=== PATIENT | female | born 1970 | race Caucasian/White ===

== ENCOUNTER 2017-09-07 11:58 | Emergency (ER) | payer OTHER ==
[2017-09-07 12:20] VITALS: BP 121/81
--- NOTE | 2017-09-07 12:22 | ED Physician Documentation ---
Chest Pain - HISTORIAN Historian: patient - HPI Chief Complaint: Chest Pain Additional Information: lt mid rib pain after flu bug w/ marked coughing-finishing tamiflu-had double sickening Onset: days ago (2-3) Timing: gradual onset, still present Duration: waxing, waning, other (worse w/movement deep breath or cough) Last known Well Date: 08/29/17 Last Known Well Time: 20:00 Last known Well Code/Unknown Code: Known Severity: moderate Quality: pressure, sharp, stabbing Chest Pain Radiation: no radiation Chest Pain Signs/Symptoms: denies: nausea, vomiting, diaphoresis Worsened By: deep breaths, movement Relieved By: rest Further Comments: no - ROS CONST: recent illness MS/LYMPH: none GI/: none EYES/ENT: none SKIN/ENDO: none NEURO/PSYCH: none (ibs--controlled even w/ prev flu-cough) - PAST HX [place] risk factors: no pertinent history, other (recent flu w/cough) GI disease: none Lung disease: other (getting over flu) Surgeries/Procedures: other (d and c) Allergies/Adverse Reactions: Allergies Allergy/AdvReac Type Severity Reaction Status Date / Time amoxicillin trihydrate Allergy Face Verified 09/07/17 12:20 [From Amoxil] Swelling - SOCIAL HX Smoking History: non-smoker Alcohol Use: none Drug Use: none - FAMILY HX Family HX: none - VITAL SIGNS Vital Signs: Vital Signs Temp Pulse Resp BP Pulse Ox 97.7 F 91 H 18 121/81 100 09/07/17 12:13 09/07/17 12:13 09/07/17 12:13 09/07/17 12:13 09/07/17 12:13 - REVIEWED ASSESSMENTS Nursing Assessment Reviewed: Yes Vitals Reviewed: Yes Chest Pain Physical Exam - EXAM General Appearance: mild distress EENT: eye inspection normal Neck: nml inspection, no carotid bruit. No: lymphadenopathy Respiratory: no resp. distress, nml breath sounds. No: chest non-tender, resp.distress, decreased air movement, wheezes, rales, rhonchi CVS: reg. rate & rhythm, no murmur, pulses equal Abdomen: soft, non-tender Skin: warm/dry, normal color. No: cyanosis, diaphoresis, jaundice Extremities: non-tender, normal range of motion, no evidence of injury Neuro: oriented X3, motor nml, sensation nml, mood/affect nml Discharge Clincal Impression: lt sub axillary costochondritis Referrals: Zeynep Rand MD [Primary Care Provider] - 2 Days Comments: ibu 600 tid Condition: Good Disposition: 01 HOME, SELF-CARE Decision to Admit: NO Decision Time: 12:27
== END 2017-09-07 12:22 | disposition home or self-care (01) ==
LOC: ED 11:58
DX: M94.0 Chondrocostal junction syndrome [Tietze] (principal)
CPT/HCPCS: 99282

== ENCOUNTER 2018-05-02 15:50 | Emergency (ER) | payer OTHER ==
[2018-05-02 16:10] VITALS: BP 101/64
--- NOTE | 2018-05-02 17:59 | ED Physician Documentation ---
Fall - HISTORIAN Historian: patient - HPI Stated Complaint: s/p fall, pain to wrists/Lt knee and hip Chief Complaint: Fall Additional Information: fell on floor at work Onset: just prior to arrival, today Where: home Context: slipped r: moderate Associated Symptoms:: no loss of consciousness Location of Pain/Injury: upper extremity (left wrist), lower extremity (left knee), hip (left) Injury to Right Extremity: none Injury to Left Extremity: wrist, hip, knee Further Comments: no - ROS CONST: no problems NEURO: denies: dizziness, anxiety, depression MS/SKIN/LYMPH: denies: weakness, numbness, neck pain, back pain, ankle swelling, leg swelling EYES/ENT: none CVS/RESP: none GI/: denies: problems urinating, nausea, vomiting - PAST HX Past History: none Immunizations: referred to PCP Allergies/Adverse Reactions: Allergies Allergy/AdvReac Type Severity Reaction Status Date / Time amoxicillin trihydrate Allergy Face Verified 05/02/18 16:10 [From Amoxil] Swelling Home Medications: Ambulatory Orders Medication Instructions Recorded Norgestimate-Ethinyl Estradiol 0.25 mg PO D 05/02/18 [Sprintec 28 Day Tablet] - SOCIAL HX Smoking History: non-smoker Alcohol Use: none Drug Use: none - FAMILY HX Family History: no significant history - VITAL SIGNS Vital Signs: Vital Signs Temp Pulse Resp BP Pulse Ox 99.4 F 81 16 101/64 98 05/02/18 15:50 05/02/18 15:50 05/02/18 15:50 05/02/18 15:50 05/02/18 15:50 - REVIEWED ASSESSMENTS Nursing Assessment Reviewed: Yes Vitals Reviewed: Yes Progress - Results/Orders Results/Orders: x-rays of left hip, wrist and knee ordered - Progress Progress: . stable entire time in er Critical Care Note - Critical Care Note Total Time (mins): 0 ED Results Lab/Radiology - Lab Results Lab Results: none ordered - Radiology Radiology Impressions: left wrist x-ray, left knee x-ray, left hip x-ray all neg - Orders Orders: ED Orders Category Date Time Status KNEE 3 VIEWS [RAD] Stat Exams 05/02/18 Taken LT HIP 2VIEW COMPLETE [RAD] Routine Exams 05/02/18 Taken WRIST 3 VIEWS OR MORE [RAD] Stat Exams 05/02/18 Taken Fall Physical Exam - Physical Exam General Appearance: alert, moderate distress Head: non-tender, no swelling, no obvious injury. No: raccoon eyes, Swanson's sign, trauma Neck: non-tender, painless ROM, trachea midline Eye: ELVER, lids & conjunct. nml ENT: nml external inspection, no dental injury, no oral injury, airway nml Resp/CVS: chest non-tender, no ecchymosis, breath sounds nml, no resp. distress, heart sounds nml. No: rib tenderness Abdomen: soft, no organomegaly, normal bowel sounds, no abdominal bruit, no distension, non-tender Neuro: oriented x3, CN's nml as tested, sensation nml, motor nml, mood/affect nml, golf club manager nml, reflexes nml, golf club manager symmetrical Skin: color nml, no rash Back: normal inspection, no CVA tenderness, no vertebral tenderness Extremities: other (left wrist tender radial aspect, no deformity, left hip minimal tenderness, left knee positive patellar tenderness, no lig laxity or defortmity) Joint: nml ROM. No: ligamentous instability Discharge Clincal Impression: Left wrist sprain Qualifiers: Encounter type: initial encounter Qualified Code(s): S63.502A - Unspecified sprain of left wrist, initial encounter Left knee sprain Qualifiers: Encounter type: initial encounter Involved ligament of knee: unspecified ligament Qualified Code(s): S83.92XA - Sprain of unspecified site of left knee, initial encounter Contusion of left hip Qualifiers: Encounter type: initial encounter Qualified Code(s): S70.02XA - Contusion of left hip, initial encounter Referrals: Zeynep Rand MD [Primary Care Provider] - 2 Days Comments: Pt. discharged in stable condition with sita bandage to left knee and script for Meloxicam 7.5 mg 1 p.o. bid Condition: Stable Disposition: 01 HOME, SELF-CARE Decision to Admit: NO Decision Time: 17:58
--- NOTE | 2018-05-02 21:57 | Diagnostic Imaging Report ---
SHANNA DE LEON [facility] [id number] [facility] [address] [place] [address]. [id number] Report Submission Date: May 02, 2018 4:59:10 PM CDT Patient Study Name: TOMAS BAUM Date: May 02, 2018 4:28:44 PM CDT Modality Type: DX Gender: F Description: LOWER EXTREMITY : 74 Institution: [facility] Physician: SHANNA DE LEON Examination: Plain film left knee History: LEFT KNEE, PAIN IN LEFT KNEE AFTER FALL TODAY (Hx) Findings: 3 views of the left knee demonstrates articular degenerative changes. No fracture. No dislocation. No joint effusion. No soft tissue irregularity. Impression: Degenerative changes. No acute osseous abnormality Electronically signed on May 02, 2018 4:59:10 PM CDT by: Chi COTTON
--- NOTE | 2018-05-02 21:57 | Diagnostic Imaging Report ---
SHANNA DE LEON [facility] [id number] [facility] [address] [place] [address]. [id number] Report Submission Date: May 02, 2018 4:57:24 PM CDT Patient Study Name: TOMAS BAUM Date: May 02, 2018 4:35:21 PM CDT Modality Type: DX Gender: F Description: LEFT WRIST : 74 Institution: [facility] Physician: SHANNA DE LEON Examination: Plain film left wrist History: LEFT WRIST, PAIN IN LEFT WRIST, WORSE ON LATERAL/RADIAL SIDE, AFTER FALL TODAY (Hx) Comparison exams: None available Findings: 3 views of the left wrist demonstrate normal cortical margins. No fracture. No dislocation. No soft tissue abnormality. Impression: No acute osseous abnormality Electronically signed on May 02, 2018 4:57:24 PM CDT by: Chi COTTON
--- NOTE | 2018-05-02 21:58 | Diagnostic Imaging Report ---
SHANNA DE LEON [facility] [id number] [facility] [address] [place], [place]. [address] Report Submission Date: May 02, 2018 5:01:27 PM CDT Patient Study Name: TOMAS BAUM Date: May 02, 2018 4:24:54 PM CDT Modality Type: DX Gender: F Description: PELVIS : 74 Institution: [facility] Physician: SHANNA DE LEON Examination: Plain film left hip History: LEFT HIP, PAIN IN LEFT HIP AFTER FALL TODAY (Hx) Comparison exams: None provided Findings: 2 views of the left hip demonstrate normal cortical margins. No fracture no dislocation. No soft tissue abnormality. Impression: No acute osseous abnormality. Electronically signed on May 02, 2018 5:01:27 PM CDT by: Chi COTTON
== END 2018-05-02 18:00 | disposition home or self-care (01) ==
LOC: ED 15:50
DX: S63.502A Unspecified sprain of left wrist, initial encounter (principal); S83.92XA Sprain of unspecified site of left knee, initial encounter; S70.02XA Contusion of left hip, initial encounter; W19.XXXA Unspecified fall, initial encounter; Y92.9 Unspecified place or not applicable; Y93.9 Activity, unspecified; Y99.9 Unspecified external cause status
CPT/HCPCS: 73110; 73562; 99284